=== PATIENT | female | born 1985 | race Caucasian/White ===

== ENCOUNTER 2016-12-28 21:23 | Emergency (ER) | payer BC ==
[2016-12-28 21:27] VITALS: BP 124/77
--- NOTE | 2016-12-28 22:42 | ED ---
Popeye Cruz Janilya, scribed for Sim Watts MD on 12/28/16 at 2210 . - HPI Summary HPI Summary: A 31 y/o [place] [facility] w/ a needlestick injury on her left 3rd digit. Pt states there was bleeding, which stopped immediately after washing the site with water. She thinks the needle was used on a low-risk pt. - History of Current Complaint Chief Complaint: EDExposureBodyFluid Stated Complaint: NEEDLE STICK Time Seen by Provider: 12/28/16 21:43 Date of Incident: 12/28/16 Blood on Needle: Yes Depth of Needlestick: Scratch Bleeding at Site: Yes Treatment TARPER: Cleaned Wound PMH/Surg Hx/FS Hx/Imm Hx Previously Healthy: Yes EENT History: Denies: Hx Deafness Infectious Disease History: No Infectious Disease History: Denies: Traveled Outside the [place] in Last 30 Days - Social History Occupation: Employed Full-time Alcohol Use: Occasionally Hx Substance Use: No Hx Tobacco Use: Yes Smoking Status (MU): Never Smoked Tobacco Review of Systems Negative: Fever Positive: Other - skin abrasion on her left 3rd digit due to needlestick injury All Other Systems Reviewed And Are Negative: Yes Physical Exam Triage Information Reviewed: Yes Vital Signs On Initial Exam: Initial Vitals Temp Pulse Resp BP Pulse Ox 98.2 F 101 15 124/77 100 12/28/16 21:24 12/28/16 21:24 12/28/16 21:24 12/28/16 21:24 12/28/16 21:24 Vital Signs Reviewed: Yes Appearance: Positive: Well-Appearing, No Pain Distress Skin: Positive: Warm, Skin Color Reflects Adequate Perfusion, Dry, Other - Currently no bleeding of the site of needlestick injury Head/Face: Positive: Normal Head/Face Inspection Eyes: Positive: EOMI, EVERARDO ENT: Positive: Normal ENT inspection Neck: Positive: Supple, Nontender Respiratory/Lung Sounds: Positive: Clear to Auscultation, Breath Sounds Present Cardiovascular: Positive: RRR Abdomen Description: Positive: Nontender, Soft Bowel Sounds: Positive: Present Musculoskeletal: Positive: Normal, Strength/ROM Intact Neurological: Positive: Normal, Sensory/Motor Intact, Alert, Oriented to Person Place, Time Psychiatric: Positive: Affect/Mood Appropriate Diagnostics - Vital Signs Vital Signs Temp Pulse Resp BP Pulse Ox 12/28/16 21:24 98.2 F 101 15 124/77 100 - Laboratory Lab Statement: Any lab studies that have been ordered have been reviewed, and results considered in the medical decision making process. Needlestick Course/Dx - Course Course Of Treatment: PATIENT DECLINED PEP. WILL F/U WITH INFECTIOUS DX. DISCHARGE HOME STABLE. - Diagnoses Provider Diagnoses: Needle stick injury of finger Discharge - Discharge Plan Condition: Stable Disposition: HOME Patient Education Materials: Needle Stick Injuries (ED) Referrals: Gerardo OSWALD,Saulo Navarro [Medical Doctor] - Elli Noonan NP [Primary Care Provider] - Additional Instructions: FOLLOW UP WITH YOUR DOCTOR AND DR LUU. RETURN TO THE EMERGENCY DEPARTMENT FOR ANY WORSENING OF YOUR CONDITION OR QUESTIONS OR CONCERNS. The documentation as recorded by the Popeye lerma Janilya accurately reflects the service I personally performed and the decisions made by me, Sim Watts MD.
[2016-12-28 23:23] LABS: Rapid HIV INT CONT QC Line Present
[2016-12-28 23:24] LABS: Manual Entry Verification LOR0008; Rapid HIV Kit Lot# F209011
== END 2016-12-28 22:59 | disposition home or self-care (01) ==
LOC: ED 21:23
DX: Z77.21 Contact with and (suspected) exposure to potentially hazardous body fluids (principal); W46.0XXA Contact with hypodermic needle, initial encounter
CPT/HCPCS: 36415; 86703; 86706; 86803; 87340; 99283

== ENCOUNTER 2018-05-06 13:08 | Inpatient (IN) | payer BC ==
--- NOTE | 2018-05-06 17:35 | HP ---
General Information - Reason for Visit Pt reports contractions increasing in strength and frequency gradually over the last 2 days - General Information Maternal Age: 32 Grav: 2 Para: 0 SAB: 0 IEA: 1 Estimated Due Date: 05/02/18 Determined By: LMP Gestational Age in Weeks/Days: 40 4/7 Maternal Blood Type and Rh: O Positive - Results this Serology/RPR Result: Non-Reactive Rubella Result: Immune HBsAg Result: Negative HIV Result: Negative GBS Culture Result: Negative Past Medical History Delivery History: See Records - Pertinent Past Medical History: Non-Contributory Pertinent Past Surgical History: See Records - breast biopsy Pertinent Family History: Non-Contributory - Antepartal Records Antepartal Records: Reviewed, Complicated by: - HSV w/ 1 vaginal outbreak Review of Systems Constitutional: Comfortable CV Complaint: No Respiratory: Shortness of Breath: No Gastrointestinal: No Nausea/Vomiting, Normal Bowel Movement Genitourinary: No Dysuria, No Bleeding, No Leaking Fluid Musculoskeletal: No Complaint, No Epigastric Pain Neurological: No Headache, No Visual Changes Movement: Normal Exam Allergies/Adverse Reactions: Allergies No Known Allergies Allergy (Verified 01/30/17 09:36) - Measurements Height: 5 ft 5 in Weight: 77.111 kg Weight in lbs: 170.455702 Body Mass Index (BMI): 28.3 Pre- Weight: 60.328 kg Weight Gained This : 37 lbs and 0 ozs - Exam Breast: Breast Exam Deferred CVA: No CVA Tenderness Extremities: No Edema Heart: Normal Rhythm/Heart Sounds HEENT: No Significant Findings Lungs: Clear Bilaterally Rectal: Rectal Exam Deferred Reflexes: DTR 2+ Thyroid: No Thyromegaly - Abdominal Exam Abdomen Exam: Non-Tender, Fundal Height Consistent with Dates - Ultrasound/Biophysical Profile Ultrasound Status: Not Done Targeted Exam Findings See L&D Outpatient Visit Provider Note for Findings: N/A Estimated Weight: 7.5# Cervical Exam: 4cm Effacement: 100% Station: -2 Presenting Part: Vertex Membrane Status: Bulging Bleeding/Discharge: None EFM Findings - External Monitor Findings Baseline Heart Rate: 130 External Monitor Findings: Accelerations Present, No Pattern of Variable or Late Decelerations, Variability Moderate, Baseline Stable Contractions: Regular, Moderate, 45-90 Seconds Contraction Frequency: 3-6 Assessment/Plan - Assessment 32 year old at 40 4/7 weeks gestation, in active labor, GBS negative, with no evidence of acidemia. - Obstetrical Risk Factors Obstetrical Risk Factors: Post-Dates - Plan Plan: Admit - Anticipate Vaginal Delivery - Date/Time of Admission Date of Admission: 05/06/18 Time of Admission: 14:02
[2018-05-06] MEDS ORDERED: OBEPIDURAL* 250 ML EPIDURAL ONE (21:31)
[2018-05-06 21:38] LABS: ABS Basophils 0 10^3/ul (0-0.2); ABS Eosinophils 0 10^3/ul (0-0.6); ABS Lymphocytes 1.3 10^3/ul (1.0-4.8); ABS Monocytes 0.9 10^3/ul (0-0.8); ABS Neutrophils 12.1 10^3/ul (1.5-7.7); ABS Nucleated RBC 0 10^3/ul; Eosinophil % 0.1 % (0-6); Hematocrit 37 % (35-47); Lymphocyte % 8.9 % (25-47); Mean Corpuscular HGB Conc 35 g/dl (31-36); Mean Corpuscular Hemoglobin 33 pg (27-31); Mean Corpuscular Volume 94 fL (80-97); Mean Platelet Volume 9.3 um3 (7.4-10.4); Nucleated Red Blood Cells % 0; Platelet Count 195 10^3/ul (150-450); Red Blood Count 3.98 10^6/ul (4.00-5.40); Red Cell Distribution Width 15 % (10.5-15); White Blood Count 14.3 10^3/ul (3.5-10.8)
[2018-05-06] MEDS ORDERED: Sodium Citrate/Citric Acid* 15 ML UDC PO PRN (22:50)
[2018-05-06] MEDS ORDERED: EPHEDrine (Pressors)* 50 MG/ML VIAL IV PUSH PRN ×2 (22:50)
[2018-05-06] MEDS ORDERED: Phenylephrine IV* 40 MCG/ML 10 ML SYRINGE IV PUSH PRN ×2 (22:50)
[2018-05-06] MEDS ORDERED: Famotidine TAB* 20 MG PO PRN (22:50)
[2018-05-06] MEDS ORDERED: OBEPIDURAL* 250 ML EPIDURAL SCH (23:00)
[2018-05-06] MEDS ORDERED: Calcium Carbonate CHEW TAB* 500 MG (TUMS) ONE (23:13)
[2018-05-07] MEDS ORDERED: Oxytocin in LR* 20 UNITS/1,000 ML BAG IVPB ONE (08:07)
[2018-05-07] MEDS ORDERED: Oxytocin in LR* 20 UNITS/1,000 ML BAG IVPB SCH ×2 (09:00→11:00)
[2018-05-07] MEDS ORDERED: fentaNYL* 50 MCG/ML 5 ML VIAL (250 MCG VIAL) ONE (10:02)
[2018-05-07] MEDS ORDERED: Chloroprocaine 2%* 20 ML VIAL ONE (10:16)
[2018-05-07] MEDS ORDERED: Glycerin ADULT SUPP PR PRN (10:47)
[2018-05-07] MEDS ORDERED: Witch Hazel PAD* JAR TOPICAL PRN (10:47)
[2018-05-07] MEDS ORDERED: Dibucaine 1% 28.35 GM TUBE PR PRN (10:47)
[2018-05-07] MEDS ORDERED: Acetaminophen TAB* 325 MG PO PRN (10:47)
[2018-05-07] MEDS ORDERED: Misoprostol TAB* 200 MCG PR ONE (11:02)
[2018-05-07] MEDS ORDERED: oxyCODONE/Acetamin 5/325 MG* TAB PO PRN (11:03)
[2018-05-07] MEDS: Ibuprofen TAB* 600 MG PO PRN ×2 (12:09→18:22)
[2018-05-07] MEDS: Docusate CAP* 100 MG PO SCH ×2 (12:11→21:02)
[2018-05-07] MEDS ORDERED: Phenylephrine IV* 40 MCG/ML 10 ML SYRINGE ONE (14:56)
--- NOTE | 2018-05-07 22:38 | OP ---
OPERATIVE REPORT: DATE OF OPERATION: 05/07/18 DATE OF : 87 SURGEON: Tejinder Mariano MD ANESTHESIA: Epidural. PRE-OP DIAGNOSIS: Prolonged second stage maternal exhaustion. POST-OP DIAGNOSES: Prolonged second stage maternal exhaustion, post macrosomia. OPERATIVE PROCEDURE: Low forceps delivery ESTIMATED BLOOD LOSS: 400 cc. FINDINGS: Included viable male, Apgars 8 and 9, weight was 9 pounds 8 ounces. 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 I was asked to reexamine the patient after 4-1/2 hours of pushing and again at this point she had brought the baby down lower, felt to be a +3 cm station with an LOP position. Because of the low state, options of section versus a low forceps versus a vacuum delivery were discussed. I encouraged them to avoid the vacuum as I did not feel this would be effective and I felt the low forceps would be safe, so I went through the risks and benefits mostly related to maternal tears, but also including but not limited to lacerations and hematomas and skull fracture and facial palsies. After adequate anesthesia had been placed by the anesthesiologist, the forceps were placed and the Garcia forceps in the ROP position with the plan to not to do rotation, but to directly deliver occiput posterior. Once the forceps were on, the sagittal sutures were palpated and found to be midline and good application was felt to be had, pressure was applied with slow descent of the vertex and delivery. Immediate right middle lateral episiotomy had been cut as there was resistance and this was relieved by the medial lateral episiotomy. As the baby was delivered with ease the cords were doubly clamped and cut and the infant was handed to the waiting passport application examiner. Cord blood was obtained. Placenta delivered spontaneously. The vagina was inspected, found to have a small SULCUS tear on the right side, which was repaired using 3-0 Polysorb. The rest of the medial lateral was repaired using 2-0 Vicryl and 3-0 Vicryl RAPIDE. The patient tolerated the procedure well. [id number]/[facility] #: [id number] [facility]
[2018-05-08] MEDS: Ibuprofen TAB* 600 MG PO PRN ×4 (00:37→19:47)
[2018-05-08 06:17] LABS: ABS Basophils 0 10^3/ul (0-0.2); ABS Eosinophils 0 10^3/ul (0-0.6); ABS Lymphocytes 1.8 10^3/ul (1.0-4.8); ABS Neutrophils 11.7 10^3/ul (1.5-7.7); ABS Nucleated RBC 0 10^3/ul; Eosinophil % 0.3 % (0-6); Hematocrit 24 % (35-47); Hemoglobin 8.4 g/dl (12.0-16.0); Lymphocyte % 12.5 % (25-47); Mean Corpuscular HGB Conc 34 g/dl (31-36); Mean Corpuscular Hemoglobin 32 pg (27-31); Mean Corpuscular Volume 94 fL (80-97); Nucleated Red Blood Cells % 0; Platelet Count 134 10^3/ul (150-450); Red Blood Count 2.59 10^6/ul (4.00-5.40); Red Cell Distribution Width 15 % (10.5-15); White Blood Count 14.7 10^3/ul (3.5-10.8)
[2018-05-08] MEDS: Ferrous Gluconate TAB* 324 MG TAB PO SCH ×2 (08:59→19:47)
[2018-05-08] MEDS: Docusate CAP* 100 MG PO SCH ×3 (09:00→19:47)
--- NOTE | 2018-05-08 12:26 | PTEDU ---
Patient Name: FREDO GIBSON PAIGEFREDO selected video: BBOB: Nurturing Your Gorgeous &Growing Baby by to view on 05/08/2018 at 12:26:[address] [id number]
--- NOTE | 2018-05-09 06:24 | PTEDU ---
Patient Name: FREDO GIBSON PAIGEFREDO selected video: Never Ever Shake a Baby to view on 05/09/2018 at 6:23:13 AM [email or web address] _
--- NOTE | 2018-05-09 06:33 | PTEDU ---
Patient Name: FREDO GIBSON PAIGEFREDO selected video: Follow Me Mum: The [place] to Successful to view on 05/09/2018 at 6:32:40 [email or web address]
[2018-05-09 07:17] LABS: ABS Basophils 0 10^3/ul (0-0.2); ABS Eosinophils 0.1 10^3/ul (0-0.6); ABS Monocytes 0.9 10^3/ul (0-0.8); ABS Neutrophils 11.4 10^3/ul (1.5-7.7); ABS Nucleated RBC 0 10^3/ul; Eosinophil % 0.7 % (0-6); Hematocrit 28 % (35-47); Hemoglobin 9.5 g/dl (12.0-16.0); Lymphocyte % 13.7 % (25-47); Mean Corpuscular HGB Conc 34 g/dl (31-36); Mean Corpuscular Hemoglobin 32 pg (27-31); Mean Corpuscular Volume 95 fL (80-97); Mean Platelet Volume 8.6 um3 (7.4-10.4); Nucleated Red Blood Cells % 0; Platelet Count 191 10^3/ul (150-450); Red Blood Count 2.94 10^6/ul (4.00-5.40); Red Cell Distribution Width 15 % (10.5-15); White Blood Count 14.3 10^3/ul (3.5-10.8)
[2018-05-09 08:09] VITALS: BP 106/63
[2018-05-09] MEDS: Docusate CAP* 100 MG PO SCH (09:03)
[2018-05-09] MEDS: Ferrous Gluconate TAB* 324 MG TAB PO SCH (09:04)
[2018-05-09] MEDS: Ibuprofen TAB* 600 MG PO PRN (09:13)
== END 2018-05-09 10:53 | disposition home or self-care (01) | DRG 560 ==
LOC: MCHOBOUT 13:08 → MCHOB 14:02
PROVIDERS: ADMIT Midwife; ATTEND Obstetrics & Gynecology
PROC: 10D07Z3 Extraction of Products of Conception, Low Forceps, Via Natural or Artificial Opening (ICD-10-PCS; principal; 2018-05-07)
PROC: 0W8NXZZ Division of Female Perineum, External Approach (ICD-10-PCS; 2018-05-07)
PROC: 10907ZC Drainage of Amniotic Fluid, Therapeutic from Products of Conception, Via Natural or Artificial Opening (ICD-10-PCS; 2018-05-07)
PROC: 0HQ9XZZ Repair Perineum Skin, External Approach (ICD-10-PCS; 2018-05-07)
DX: O48.0 Post-term pregnancy (principal); O70.4 Anal sphincter tear complicating delivery, not associated with third degree laceration; O63.1 Prolonged second stage (of labor); O75.81 Maternal exhaustion complicating labor and delivery; O36.63X0 Maternal care for excessive fetal growth, third trimester, not applicable or unspecified; O90.81 Anemia of the puerperium; D64.9 Anemia, unspecified; Z3A.40 40 weeks gestation of pregnancy; Z37.0 Single live birth
CPT/HCPCS: 36415; 85025; 86850; 86900; 86901; A9270-GY; J2400; J3010